=== PATIENT | female | born 1935 | race Caucasian/White ===

== ENCOUNTER → 2018-03-05 11:13 | Outpatient (CLI) | payer MEDICARE, SELFPAY ==
[2018-03-05 13:43] LABS: Alanine Aminotransferase 28 IU/L (9-52); BUN Creatinine Ratio 18.2 (6-22); Blood Urea Nitrogen 20 mg/dL (7-17); Calcium 9.1 mg/dL (8.4-10.2); Carbon Dioxide 30 mmol/L (22-32); Chloride 101 mmol/L (98-107); Cholesterol 251 mg/dL (140-199); Estimated Glomerular Filt Rate 47.4 mL/min (>60); Glucose 92 mg/dL (80-110); HDL Cholesterol 69 mg/dL (40-60); HEMOLYSIS < 15 (0-50); LDL Cholesterol Calculated 167 mg/dL (<100); Potassium 4.6 mmol/L (3.4-5.1); Sodium 140 mmol/L (137-145); Triglycerides 76 mg/dL (35-150)
== END ==
PROVIDERS: PCP Internal Medicine; Visit Provider Internal Medicine
DX: N18.9 Chronic kidney disease, unspecified (principal); E78.00 Pure hypercholesterolemia, unspecified
CPT/HCPCS: 36415; 80048; 80061; 84460

== ENCOUNTER → 2018-08-15 09:46 | Outpatient (CLI) | payer MEDICARE, SELFPAY ==
--- NOTE | 2018-08-15 09:48 | DI.MG.S_ITS ---
BILATERAL DIGITAL SCREENING MAMMOGRAM 3D/2D WITH CAD: 08/15/2018 CLINICAL: Routine screening. Family history of breast cancer. Comparison is made to exams dated: 08/14/2017 mammogram, 08/01/2016 mammogram, and 07/31/2015 mammogram - [facility]. The tissue of both breasts is extremely dense, which lowers the sensitivity of mammography. Current study was also evaluated with a Computer Aided Detection (CAD) system. There are benign vascular calcifications in both breasts. No significant masses, calcifications, or other findings are seen in either breast. There has been no significant interval change. IMPRESSION: There is no mammographic evidence of malignancy. A 1 year screening mammogram is recommended. This exam was interpreted at Station ID: [id number]. NOTE: For mammograms, a report in lay terms will be sent to the patient. Approximately 15% of breast malignancies will not be visualized mammographically. In the management of a palpable breast mass, a negative mammogram must not discourage biopsy of a clinically suspicious lesion. Electronically Signed By: Mayra preciado/keily:08/17/2018 15:46:28 letter sent: Normal Exam ACR BI-RADS Category 2: Benign Finding(s) 3342F
== END ==
PROVIDERS: PCP Internal Medicine; Visit Provider Internal Medicine
DX: Z12.31 Encounter for screening mammogram for malignant neoplasm of breast (principal); Z80.3 Family history of malignant neoplasm of breast
CPT/HCPCS: 77063; 77067

== ENCOUNTER → 2019-07-31 08:22 | Outpatient (CLI) | payer MEDICARE, SELFPAY ==
[2019-07-31 09:15] LABS: Add Manual Diff / Slide Review NO; Basophils Absolute Auto 100 /uL (0-100); Basophils Percent Auto 1.2 % (0-2); Eosinophils Absolute Auto 100 /uL (0-450); Eosinophils Percent Auto 1.8 % (2-4); Hematocrit 38.7 % (36-46); Hemoglobin 12.6 g/dL (12.0-16.0); Lymphocytes Absolute Auto 1300 /uL (1100-4500); Lymphocytes Percent Auto 24.7 % (25-40); Mean Corpuscular HGB Conc 32.7 % (30-36); Mean Corpuscular Hemoglobin 29.2 PG (26-34); Mean Corpuscular Volume 89.4 fL (80-100); Monocytes Absolute Auto 500 /uL (0-900); Monocytes Percent Auto 9.5 % (3-14); Neutrophils Absolute Auto 3400 /uL (1500-7000); Neutrophils Percent Auto 62.8 % (50-75); Platelet Count 220 X10^3/uL (150-400); Red Blood Cell Count 4.33 X10^6/uL (4.0-5.2); Red Cell Distribution Width 14.4 % (11.6-14.8); White Blood Cell Count 5.4 X10^3/uL (4.5-11.0)
[2019-07-31 09:28] LABS: Cholesterol 213 mg/dL (140-199); HDL Cholesterol 60 mg/dL (40-60); LDL Cholesterol Calculated 140 mg/dL (<100); Triglycerides 64 mg/dL (35-150)
[2019-07-31 09:46] LABS: Vitamin D 25 Hydroxy (D3) 28.9 ng/mL (30.0-100.0)
== END ==
PROVIDERS: PCP Internal Medicine; Visit Provider Internal Medicine
DX: N18.9 Chronic kidney disease, unspecified (principal); E78.00 Pure hypercholesterolemia, unspecified
CPT/HCPCS: 36415; 80061; 82306; 85025

== ENCOUNTER → 2019-09-08 14:18 | Outpatient (CLI) | payer MEDICARE, SELFPAY ==
--- NOTE | 2019-09-08 | DI.MG.S_ITS ---
BILATERAL DIGITAL SCREENING MAMMOGRAM 3D/2D WITH CAD: 09/08/2019 CLINICAL: Routine screening. Family history of breast cancer. Comparison is made to exams dated: 08/15/2018 mammogram, 08/14/2017 mammogram, and 08/01/2016 mammogram - [facility]. The tissue of both breasts is heterogeneously dense. This may lower the sensitivity of mammography. Current study was also evaluated with a Computer Aided Detection (CAD) system. There is a focal asymmetry in the left breast at 11 o'clock posterior depth. There is architectural distortion associated with the focal asymmetry. No other significant masses, calcifications, or other findings are seen in either breast. IMPRESSION: INCOMPLETE: NEEDS ADDITIONAL IMAGING EVALUATION The focal asymmetry in the left breast is indeterminate. Additional views with possible ultrasound are recommended. This exam was interpreted at Station ID: [id number]. NOTE: For mammograms, a report in lay terms will be sent to the patient. Approximately 15% of breast malignancies will not be visualized mammographically. In the management of a palpable breast mass, a negative mammogram must not discourage biopsy of a clinically suspicious lesion. Electronically Signed By: Mayra preciado/keily:09/08/2019 15:45:02 letter sent: Additional Imaging Needed ACR BI-RADS Category 0: Incomplete 3340F
== END ==
PROVIDERS: PCP Internal Medicine; Visit Provider Internal Medicine
DX: Z12.31 Encounter for screening mammogram for malignant neoplasm of breast (principal); Z80.3 Family history of malignant neoplasm of breast; M85.851 Other specified disorders of bone density and structure, right thigh; Z78.0 Asymptomatic menopausal state; Z82.62 Family history of osteoporosis
CPT/HCPCS: 77063; 77067; 77080

== ENCOUNTER → 2019-12-08 08:58 | Outpatient (CLI) | payer MEDICARE, SELFPAY ==
[2019-12-08 11:09] LABS: BUN Creatinine Ratio 14.2 (6-22); Blood Urea Nitrogen 18 mg/dL (7-17); Calcium 9.4 mg/dL (8.4-10.2); Carbon Dioxide 32 mmol/L (22-32); Chloride 101 mmol/L (98-107); Cholesterol 200 mg/dL (140-199); Glucose 107 mg/dL (80-110); HDL Cholesterol 54 mg/dL (40-60); HEMOLYSIS < 15 (0-50); LDL Cholesterol Calculated 131 mg/dL (<100); Sodium 139 mmol/L (137-145); Triglycerides 76 mg/dL (35-150)
[2019-12-08 11:26] LABS: Vitamin D 25 Hydroxy (D3) 32.8 ng/mL (30.0-100.0)
== END ==
PROVIDERS: PCP Internal Medicine; Referring Provider Internal Medicine; Visit Provider Internal Medicine
DX: E78.00 Pure hypercholesterolemia, unspecified (principal); N18.9 Chronic kidney disease, unspecified; E55.9 Vitamin D deficiency, unspecified
CPT/HCPCS: 36415; 80048; 80061; 82306

== ENCOUNTER → 2020-02-08 15:47 | Outpatient (CLI) | payer MEDICARE, SELFPAY ==
[2020-02-08 19:23] LABS: Appearance Urine UA CLEAR; Bilirubin Urine UA NEGATIVE (NEGATIVE); Color Urine UA YELLOW; Glucose Urine UA NEGATIVE (Negative); Ketones Urine UA NEGATIVE (NEGATIVE); Leukocyte Esterase Urine UA TRACE (NEGATIVE); Nitrite Urine UA POSITIVE (Negative); Occult Blood Urine UA NEGATIVE (Negative); Protein Urine UA NEGATIVE (Negative); Specific Gravity Urine UA <=1.005 (1.000-1.035); Urobilinogen Urine UA 0.2 E.U./dL (0.2)
[2020-02-08 19:37] LABS: Bacteria Urine Few (2-10); Culture Indicated Urine Specimen Cultured; RBC Urine 0-1/HPF (0-5/HPF); WBC Urine 1-5/HPF (0-5/HPF); pH Urine UA 6.5 (4.5-8.0)
== END ==
PROVIDERS: PCP Internal Medicine; Visit Provider Nurse Practitioner
DX: R10.2 Pelvic and perineal pain (principal)
CPT/HCPCS: 81001; 87086

== ENCOUNTER → 2020-06-27 13:03 | Outpatient (CLI) | payer MEDICARE, SELFPAY ==
--- NOTE | 2020-06-27 | DI.MRI.S_ITS ---
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 After the administration of contrast, axial and sagittal T1 spin echo with fat saturation through the cervical spine. COMPARISON: None. FINDINGS: Image quality: Excellent. Alignment and curvature: Straightening of the usual cervical lordosis. Otherwise normal alignment. There is partial degenerative osseous fusion of the C3 and C4 vertebral bodies across the intervertebral disc space. Marrow: Marrow is normal in overall signal, without suspicious enhancement. Spinal cord: Visualized spinal cord has normal size and signal. No cerebellar tonsillar herniation. No abnormal intramedullary enhancement. Regional soft tissues: No paravertebral masses or suspicious enhancement. C2-3: No spinal canal or neural foraminal stenosis. C3-4: No spinal canal stenosis. Facet and uncovertebral hypertrophy contribute to severe left and mild right neural foraminal narrowing. C4-5: Posterior disc-osteophyte complex and buckling of the ligamentum flavum combine to produce moderate spinal canal stenosis. Facet and uncovertebral hypertrophy combine to produce severe left and mild right neural foraminal narrowing. C5-6: Moderate spinal canal stenosis due to a combination of posterior disc osteophyte complex and buckling of the ligamentum flavum. Facet and uncovertebral hypertrophy contribute to severe left and mild right neural foraminal stenosis. C6-7: Mild spinal canal stenosis due to a combination of posterior disc-osteophyte complex and buckling of the ligamentum flavum. Facet and uncovertebral hypertrophy contribute to mild left greater than right neural foraminal stenosis. C7-T1: No spinal canal or neural foraminal stenosis. IMPRESSION: No evidence of metastatic disease in the cervical spine. Edema and enhancement along the endplates at the C4-C5 level due to degenerative changes, a potential source of nonradicular axial back pain. Moderate spinal canal stenosis at C4-C5 and C5-C6. Severe neural foraminal stenosis on the left from C3-C4 through C5-C6. Dictated by: Otf Gee M.D. on 06/27/2020 at 16:13 Approved by: Otf Gee M.D. on 06/27/2020 at 16:18
--- NOTE | 2020-06-27 | DI.MRI.S_ITS ---
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 After the administration of contrast, axial and sagittal T1 spin echo with fat saturation through the thoracic spine. COMPARISON: [facility], MR, MR LUMBAR SPINE WO/W CON, 06/27/2020, 13:50. FINDINGS: Image quality: Excellent. Alignment and curvature: There is normal bony alignment. Marrow: Nonspecific focus of low T1 marrow signal intensity and edema in the T1 vertebral body anteriorly with associated enhancement. This could represent metastatic disease although edema due to acute degenerative changes of the disc could cause a similar appearance. No other focus of suspicious low T1 marrow signal intensity, marrow edema or abnormal marrow space enhancement. Spinal cord: Normal cord signal intensity and morphology. No syrinx. No abnormal enhancement within the intradural compartment or in the epidural space. Regional soft tissues: No prevertebral or paraspinous soft tissue mass or abnormal soft tissue enhancement Miscellaneous: No spinal canal or neural foraminal stenosis at any level in the thoracic spine. IMPRESSION: 1. Nonspecific focus of low T1 marrow signal intensity with corresponding edema and enhancement in the anterior T1 vertebral body. This could either represent metastatic disease or degenerative change. This does not fill the entire vertebral body nor does it extend into the pedicles, two features which are highly suggestive of neoplasm or metastasis, if present. An additional small focus of enhancement in the left iliac crest raises the overall likelihood that these lesions both represent metastatic disease, although again this is not entirely definitive. Dictated by: Otf Gee M.D. on 06/27/2020 at 16:19 Approved by: Otf Gee M.D. on 06/27/2020 at 16:29
--- NOTE | 2020-06-27 | DI.MRI.S_ITS ---
Caution: Report not yet finalized and possibly incomplete! 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 In cases with scoliosis, additional coronal T2 fast spin echo may be performed. After the administration of contrast, sagittal and axial T1 spin echo with fat saturation through the lumbar spine. COMPARISON: None. FINDINGS: Image quality: Adequate Alignment and curvature: 4 millimeter anterolisthesis of L3 on L4 and of L4 on L5. Otherwise normal alignment. Marrow: Occupying approximately 50 percent of the L1 vertebral body anteriorly, there there is a focus of low T1 signal intensity demonstrating corresponding enhancement and marrow edema (series 3, image 8, series 4 image a, series 7 image 8). Additional focus of enhancement measuring 7 millimeters in the left iliac crest (series 8, image 31). Discogenic marrow edema at the opposing L5-S1 endplates with trace corresponding enhancement. Spinal cord: Normal position and appearance of the conus. No abnormal intradural enhancement. Regional soft tissues: No paravertebral masses or abnormal enhancement. L1-L2: No spinal canal stenosis. Foraminal components of a circumferential disc bulge contribute to mild neural foraminal narrowing bilaterally. L2-L3: No spinal canal stenosis. Foraminal components of a diffuse disc bulge contribute to mild bilateral neural foraminal stenosis in conjunction with facet hypertrophy. L3-L4: Diffuse disc bulge and a superimposed broad-based posterior disc extrusion flatten and indent the ventral thecal sac. Bulky facet hypertrophy and buckling of the ligamentum flavum further contribute to overall severe spinal canal stenosis. There is crowding of the traversing nerve roots with complete effacement of the intervening CSF. Laxity of the nerve roots above this level indicates an element of compression . Foraminal components of the disc bulge contribute to moderate bilateral neural foraminal stenosis, greater on the left where there is abutment and flattening of the exiting L3 nerve root. Mild enhancement surrounding the facets bilaterally. L4-L5: Anterolisthesis combines with diffuse disc bulge, buckling of the ligamentum flavum, and facet hypertrophy to produce moderate-severe spinal canal stenosis. These factors combine to produce severe bilateral neural foraminal narrowing. L5-S1: Diffuse disc bulge and a superimposed broad-based posterior disc protrusion with mass effect upon the traversing S1 nerve roots. Severe right and moderate left neural foraminal stenosis. IMPRESSION: Non-specific foci of enhancement within the anterior L1 vertebral body and left iliac crest. Given history of malignancy these are suspicious for metastatic disease, although this is equivocal strictly on the basis of imaging appearance. Short interval follow-up could be considered. Correlation with any prior outside studies would also be helpful. Advanced lower lumbar spine degenerative changes with areas of probable focal nerve root impingement and significant spinal canal stenosis. Dictated by: Otf Gee M.D. on 06/27/2020 at 16:29 Approved by: Otf Gee M.D. on 06/27/2020 at 16:36
== END ==
PROVIDERS: PCP Nurse Practitioner; Referring Provider Nurse Practitioner; Visit Provider Internal Medicine Medical Oncology
DX: C50.212 Malignant neoplasm of upper-inner quadrant of left female breast (principal); Z17.0 Estrogen receptor positive status [ER+]; M47.812 Spondylosis without myelopathy or radiculopathy, cervical region; M48.02 Spinal stenosis, cervical region; M47.816 Spondylosis without myelopathy or radiculopathy, lumbar region; M48.061 Spinal stenosis, lumbar region without neurogenic claudication
CPT/HCPCS: 72156; 72157; 72158; A9579

== ENCOUNTER → 2020-07-24 10:37 | Outpatient (CLI) | payer MEDICARE, SELFPAY ==
--- NOTE | 2020-07-24 | DI.NM.S_ITS ---
PROCEDURE: NM BONE SCAN WHOLE BODY RADIOPHARMACEUTICAL: 19.6 mCi Tc-99m MDP IV. 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 Anterior and posterior views were acquired from vertex to feet. Additional left and right oblique views of the skull and cervical spine were obtained. COMPARISON: [facility], CR, XR LUMBAR SPINE 2-3V, 05/16/2020, 12:47. [facility], MR, MR LUMBAR SPINE WO/W CON, 06/27/2020, 13:50. [facility], MR, MR THORACIC SPINE WO/W CON, 06/27/2020, 13:34. [facility], MR, MR CERVICAL SPINE WO/W CON, 06/27/2020, 13:16. FINDINGS: There is a focal uptake in the calvarium near midline involving the right parietal bone, suspicious for metastasis. Increased activity in the upper lumbar spine at L1 and L2 could metastasis also degenerative disc and facet disease could give a similar appearance. No lesions are identified in sternum, clavicles, scapulae, ribs, bony pelvis, and visualized shafts of the long bones. There are foci of increased periarticular activity involving shoulders, wrists, hips and SI joints, compatible with degenerative/arthritic changes. IMPRESSION: 1. Foci of increased uptake in calvarium and upper lumbar spine (L1 and L2) are suspicious for osseous metastasis. Dictated by: Isrrael Stern M.D. on 07/24/2020 at 16:48 Approved by: Isrrael Stern M.D. on 07/24/2020 at 18:31
== END ==
PROVIDERS: PCP Nurse Practitioner; Referring Provider Nurse Practitioner; Visit Provider Internal Medicine Medical Oncology
DX: C50.212 Malignant neoplasm of upper-inner quadrant of left female breast (principal); Z17.0 Estrogen receptor positive status [ER+]; R94.8 Abnormal results of function studies of other organs and systems
CPT/HCPCS: 78306; A9503

== ENCOUNTER → 2020-08-08 10:38 | Outpatient (CLI) | payer MEDICARE, SELFPAY ==
[2020-08-08 12:58] LABS: Add Manual Diff / Slide Review NO; Basophils Absolute Auto 100 /uL (0-100); Basophils Percent Auto 0.9 % (0-2); Eosinophils Absolute Auto 100 /uL (0-450); Eosinophils Percent Auto 1.2 % (2-4); Hematocrit 38.6 % (36-46); Hemoglobin 12.7 g/dL (12.0-16.0); Lymphocytes Absolute Auto 1600 /uL (1100-4500); Lymphocytes Percent Auto 27.3 % (25-40); Mean Corpuscular HGB Conc 32.9 % (30-36); Mean Corpuscular Hemoglobin 29.3 PG (26-34); Mean Corpuscular Volume 89.1 fL (80-100); Monocytes Absolute Auto 500 /uL (0-900); Monocytes Percent Auto 8.7 % (3-14); Neutrophils Absolute Auto 3600 /uL (1500-7000); Neutrophils Percent Auto 61.9 % (50-75); Platelet Count 231 X10^3/uL (150-400); Red Blood Cell Count 4.33 X10^6/uL (4.0-5.2); Red Cell Distribution Width 14.3 % (11.6-14.8); White Blood Cell Count 5.8 X10^3/uL (4.5-11.0)
[2020-08-08 13:46] LABS: BUN Creatinine Ratio 17.8 (6-22); Blood Urea Nitrogen 21 mg/dL (7-17); Calcium 9.1 mg/dL (8.4-10.2); Carbon Dioxide 31 mmol/L (22-32); Chloride 99 mmol/L (98-107); Cholesterol 218 mg/dL (140-199); Estimated Glomerular Filt Rate 43.5 mL/min (>60); Glucose 103 mg/dL (80-110); HDL Cholesterol 71 mg/dL (40-60); HEMOLYSIS < 15 (0-50); LDL Cholesterol Calculated 128 mg/dL (<100); Potassium 4.8 mmol/L (3.4-5.1); Sodium 137 mmol/L (137-145); Triglycerides 93 mg/dL (35-150)
== END ==
PROVIDERS: PCP Family Medicine; Referring Provider Family Medicine; Visit Provider Family Medicine
DX: E78.5 Hyperlipidemia, unspecified (principal); N18.32 Chronic kidney disease, stage 3b
CPT/HCPCS: 36415; 80048; 80061; 85025

== ENCOUNTER → 2020-08-15 08:58 | Outpatient (CLI) | payer MEDICARE, SELFPAY ==
--- NOTE | 2020-08-15 10:08 | DI.CT.S_ITS ---
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 5 mm coronal and sagittal reformats were performed, with additional 7 mm coronal MIP reformats through the lungs. For radiation dose reduction, the following was used: automated exposure control, adjustment of mA and/or kV according to patient size. COMPARISON: [facility], CR, XR LUMBAR SPINE 2-3V, 05/16/2020, 12:47. [facility], MR, MR LUMBAR SPINE WO/W CON, 06/27/2020, 13:50. [facility], NM, NM BONE SCAN WHOLE BODY, 07/24/2020, 14:02. FINDINGS: Image quality: Excellent. CHEST: Lungs and pleura: No acute airspace opacities. No pleural effusions or pneumothorax. Central and peripheral airways appear patent and normal in caliber. Mediastinum: Heart size is normal. No pericardial effusion. No mediastinal or hilar adenopathy by size criteria. Thoracic aorta and central pulmonary arteries are normal in size. Esophagus is normal in caliber. No hiatal hernia. Chest wall: No axillary or supraclavicular adenopathy by size criteria. Postsurgical changes of left lumpectomy are noted. No residual mass lesion in the operative bed is seen. Thyroid gland appears normal . ABDOMEN: Solid organs: Liver is normal in size and enhancement. Gallbladder appears normal . Biliary system is non dilated. Pancreas enhances normally. Spleen is normal in size and enhancement. No adrenal nodules. Kidneys demonstrate normal size and enhancement, without hydronephrosis. Peritoneum and bowel: Bowel loops demonstrate normal wall thickness and caliber. No free fluid or air. Nodes and vessels: No retroperitoneal or mesenteric adenopathy by size criteria. Aorta and inferior vena cava are normal in size. Miscellaneous: No ventral hernias. Note is made of an inferior endplate L1 compression fracture, by CT morphology. PELVIS: Genitourinary: Bladder wall thickness is normal. Apparent prior hysterectomy, several cysts at the left ovary are noted. The largest cyst appears to measure approximately 2.2 by 2.6 cm. Miscellaneous: No inguinal hernias or adenopathy. Bones: No suspicious bony lesions are found that would indicate definite osseous metastatic disease.. No vertebral body compression fractures. IMPRESSION: Postsurgical changes left breast. No recurrent mass lesion in the operative bed or regional adenopathy. There is a inferior endplate L1 compression fracture, chronicity uncertain by CT appearance. This area is abnormal on bone scan and MR scanning as is the upper aspect of the L2 vertebral body and posterior elements to a small degree on MR scanning from late June of this year. By CT appearance definite osseous metastatic disease is not suspected. A dominant cyst is noted at the left ovary, measuring up to 2.6 cm. Prior hysterectomy. Dictated by: Juaquin Renee M.D. on 08/15/2020 at 15:34 Approved by: Juaquin Renee M.D. on 08/15/2020 at 15:45
== END ==
PROVIDERS: PCP Family Medicine; Referring Provider Internal Medicine Medical Oncology; Visit Provider Internal Medicine Medical Oncology
DX: C50.212 Malignant neoplasm of upper-inner quadrant of left female breast (principal); Z17.0 Estrogen receptor positive status [ER+]
CPT/HCPCS: 71260; 74177; Q9967

== ENCOUNTER → 2020-10-25 10:49 | Outpatient (CLI) | payer MEDICARE, OTHER, SELFPAY ==
[2020-10-25 11:50] LABS: Cholesterol 199 mg/dL (140-199); HDL Cholesterol 60 mg/dL (40-60); LDL Cholesterol Calculated 124 mg/dL (<100); Triglycerides 76 mg/dL (35-150)
[2020-10-25 19:45] LABS: Vitamin D 25 Hydroxy (D3) 26.6 ng/mL (30.0-100.0)
== END ==
PROVIDERS: PCP Family Medicine; Referring Provider Family Medicine; Visit Provider Family Medicine
DX: E78.9 Disorder of lipoprotein metabolism, unspecified (principal); E55.9 Vitamin D deficiency, unspecified; E78.5 Hyperlipidemia, unspecified
CPT/HCPCS: 36415; 80061; 82306

== ENCOUNTER → 2020-11-09 10:34 | Outpatient (CLI) | payer MEDICARE, OTHER, SELFPAY ==
[2020-11-09] MEDS: COVID-19 VACC, Ad26(JANSSEN)/PF 0.5 ML IM (10:43)
== END ==
PROVIDERS: PCP Family Medicine; Visit Provider Internal Medicine
DX: Z23 Encounter for immunization (principal)
CPT/HCPCS: 0031A; 91303

== ENCOUNTER → 2021-01-11 07:43 | Outpatient (CLI) | payer MEDICARE, OTHER, SELFPAY ==
[2021-01-11 09:48] LABS: Cholesterol 276 mg/dL (140-199); HDL Cholesterol 74 mg/dL (40-60); LDL Cholesterol Calculated 186 mg/dL (<100); Triglycerides 81 mg/dL (35-150)
== END ==
PROVIDERS: PCP Family Medicine; Referring Provider Family Medicine; Visit Provider Family Medicine
DX: N18.32 Chronic kidney disease, stage 3b (principal); E78.5 Hyperlipidemia, unspecified
CPT/HCPCS: 36415; 80061

== ENCOUNTER → 2021-05-21 14:31 | Outpatient (CLI) | payer MEDICARE, OTHER, SELFPAY ==
[2021-05-21 15:38] LABS: Add Manual Diff / Slide Review NO; Basophils Absolute Auto 100 /uL (0-100); Basophils Percent Auto 1.3 % (0-2); Eosinophils Absolute Auto 100 /uL (0-450); Eosinophils Percent Auto 1.1 % (2-4); Hemoglobin 12.1 g/dL (12.0-16.0); Lymphocytes Absolute Auto 2000 /uL (1100-4500); Lymphocytes Percent Auto 32.2 % (25-40); Mean Corpuscular HGB Conc 32.7 % (30-36); Mean Corpuscular Hemoglobin 29.3 PG (26-34); Mean Corpuscular Volume 89.8 fL (80-100); Monocytes Absolute Auto 600 /uL (0-900); Monocytes Percent Auto 10.4 % (3-14); Neutrophils Absolute Auto 3300 /uL (1500-7000); Platelet Count 223 X10^3/uL (150-400); Red Blood Cell Count 4.12 X10^6/uL (4.0-5.2); Red Cell Distribution Width 13.8 % (11.6-14.8); White Blood Cell Count 6.1 X10^3/uL (4.5-11.0)
== END ==
PROVIDERS: PCP Family Medicine; Referring Provider Internal Medicine Medical Oncology; Visit Provider Internal Medicine Medical Oncology
DX: Z17.0 Estrogen receptor positive status [ER+] (principal); C50.212 Malignant neoplasm of upper-inner quadrant of left female breast
CPT/HCPCS: 36415; 85025

== ENCOUNTER → 2021-06-05 09:39 | Outpatient (CLI) | payer MEDICARE, OTHER, SELFPAY ==
--- NOTE | 2021-06-05 | DI.NM.S_ITS ---
PROCEDURE: ME BONE SCAN WHOLE BODY RADIOPHARMACEUTICAL: 19.7 mCi Tc-99m MDP IV. 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 Anterior and posterior views were acquired from vertex to feet. Additional left and right oblique views of the thorax and abdomen were obtained. COMPARISON: [place], [place] BONE SCAN WHOLE BODY, 07/24/2020, 14:02. FINDINGS: Degenerative uptake of radiotracer within the lower cervical spine as well as the acromioclavicular and glenohumeral joints, knee joints, and ankle joints bilaterally. Degenerative uptake of radiotracer in the region of the 1st carpometacarpal joints bilaterally. No evidence of increased radiotracer uptake to indicate malignancy. IMPRESSION: Multiple sites of degenerative uptake of radiotracer. No evidence of metastasis. Dictated by: Hannah Ramsay M.D. on 06/05/2021 at 16:26 Approved by: Hannah Ramsay M.D. on 06/05/2021 at 16:30
== END ==
PROVIDERS: PCP Family Medicine; Referring Provider Internal Medicine Medical Oncology; Visit Provider Internal Medicine Medical Oncology
DX: C50.212 Malignant neoplasm of upper-inner quadrant of left female breast (principal)
CPT/HCPCS: 78306; A9503

== ENCOUNTER → 2021-08-15 10:21 | Outpatient (CLI) | payer MEDICARE, OTHER, SELFPAY ==
[2021-08-15 11:17] LABS: Alanine Aminotransferase 15 IU/L (<35); Albumin 4.4 g/dL (3.5-5.0); Albumin Globulin Ratio 1.2 (1.0-2.8); Alkaline Phosphatase 60 U/L (38-126); Aspartate Aminotransferase 41 IU/L (14-36); Bilirubin Total 0.8 mg/dL (0.2-1.3); Blood Urea Nitrogen 30 mg/dL (7-17); Calcium 9.2 mg/dL (8.4-10.2); Carbon Dioxide 30 mmol/L (22-32); Chloride 102 mmol/L (98-107); Estimated Glomerular Filt Rate 40.6 mL/min (>60); Globulin 3.8 g/dL (1.7-4.1); Glucose 109 mg/dL (80-110); HEMOLYSIS 36 (0-50); Potassium 4.6 mmol/L (3.4-5.1); Sodium 139 mmol/L (137-145); Total Protein 8.2 g/dL (6.3-8.2)
[2021-08-15 11:26] LABS: Vitamin D 25 Hydroxy (D3) 57.8 ng/mL (30.0-100.0)
[2021-08-17 10:44] LABS: Cholesterol 301 mg/dL (140-199); HDL Cholesterol 68 mg/dL (40-60); LDL Cholesterol Calculated 215 mg/dL (<100); Triglycerides 91 mg/dL (35-150)
== END ==
PROVIDERS: PCP Family Medicine; Referring Provider Family Medicine; Visit Provider Family Medicine
DX: E55.9 Vitamin D deficiency, unspecified (principal); E78.5 Hyperlipidemia, unspecified; G25.0 Essential tremor; N18.32 Chronic kidney disease, stage 3b
CPT/HCPCS: 36415; 80053; 80061; 82306

== ENCOUNTER → 2021-08-23 10:11 | Outpatient (CLI) | payer MEDICARE, OTHER, SELFPAY ==
[2021-08-23 12:48] LABS: Cholesterol 254 mg/dL (140-199); HDL Cholesterol 64 mg/dL (40-60); LDL Cholesterol Calculated 177 mg/dL (<100); Triglycerides 67 mg/dL (35-150)
== END ==
PROVIDERS: PCP Family Medicine; Referring Provider Family Medicine; Visit Provider Family Medicine
DX: E78.5 Hyperlipidemia, unspecified (principal)
CPT/HCPCS: 36415; 80061

== ENCOUNTER → 2021-11-17 08:27 | Outpatient (CLI) | payer MEDICARE, OTHER, SELFPAY ==
[2021-11-17 09:34] LABS: Add Manual Diff / Slide Review NO; Basophils Absolute Auto 100 /uL (0-100); Basophils Percent Auto 1.2 % (0-2); Eosinophils Absolute Auto 100 /uL (0-450); Eosinophils Percent Auto 2.1 % (2-4); Hematocrit 37.4 % (36-46); Hemoglobin 12.5 g/dL (12.0-16.0); Lymphocytes Absolute Auto 1300 /uL (1100-4500); Lymphocytes Percent Auto 22.7 % (25-40); Mean Corpuscular HGB Conc 33.4 % (30-36); Mean Corpuscular Hemoglobin 29.6 PG (26-34); Mean Corpuscular Volume 88.5 fL (80-100); Monocytes Absolute Auto 600 /uL (0-900); Monocytes Percent Auto 10.1 % (3-14); Neutrophils Absolute Auto 3800 /uL (1500-7000); Neutrophils Percent Auto 63.9 % (50-75); Platelet Count 233 X10^3/uL (150-400); Red Blood Cell Count 4.22 X10^6/uL (4.0-5.2); Red Cell Distribution Width 14.1 % (11.6-14.8); White Blood Cell Count 5.9 X10^3/uL (4.5-11.0)
[2021-11-17 09:55] LABS: Alanine Aminotransferase 14 IU/L (<35); Alkaline Phosphatase 47 U/L (38-126); Aspartate Aminotransferase 32 IU/L (14-36); Bilirubin Total 0.7 mg/dL (0.2-1.3); Blood Urea Nitrogen 20 mg/dL (7-17); Calcium 8.9 mg/dL (8.4-10.2); Carbon Dioxide 30 mmol/L (22-32); Chloride 102 mmol/L (98-107); Estimated Glomerular Filt Rate 40.5 mL/min (>60); Globulin 4.1 g/dL (1.7-4.1); Glucose 97 mg/dL (80-110); HEMOLYSIS < 15 (0-50); Potassium 4.2 mmol/L (3.4-5.1); Sodium 138 mmol/L (137-145); Total Protein 8.1 g/dL (6.3-8.2)
== END ==
PROVIDERS: Referring Provider Internal Medicine Medical Oncology; Visit Provider Internal Medicine Medical Oncology
DX: Z17.0 Estrogen receptor positive status [ER+] (principal); C50.212 Malignant neoplasm of upper-inner quadrant of left female breast
CPT/HCPCS: 36415; 80053; 85025

== ENCOUNTER → 2022-03-26 08:35 | Outpatient (CLI) | payer MEDICARE, OTHER, SELFPAY ==
[2022-03-26 10:27] LABS: Alanine Aminotransferase 13 IU/L (<35); Albumin Globulin Ratio 1.2 (1.0-2.8); Alkaline Phosphatase 49 U/L (38-126); Aspartate Aminotransferase 34 IU/L (14-36); BUN Creatinine Ratio 17.7 (6-22); Bilirubin Total 0.7 mg/dL (0.2-1.3); Blood Urea Nitrogen 22 mg/dL (7-17); Calcium 8.8 mg/dL (8.4-10.2); Carbon Dioxide 32 mmol/L (22-32); Chloride 100 mmol/L (98-107); Cholesterol 258 mg/dL (140-199); Estimated Glomerular Filt Rate 42 mL/min (>60); Globulin 3.4 g/dL (1.7-4.1); Glucose 97 mg/dL (80-110); HDL Cholesterol 65 mg/dL (40-60); HEMOLYSIS 17 (0-50); LDL Cholesterol Calculated 178 mg/dL (<100); Potassium 4.8 mmol/L (3.4-5.1); Sodium 137 mmol/L (137-145); Total Protein 7.4 g/dL (6.3-8.2); Triglycerides 74 mg/dL (35-150)
[2022-03-26 10:35] LABS: Vitamin D 25 Hydroxy (D3) 49.4 ng/mL (30.0-100.0)
== END ==
PROVIDERS: Referring Provider Family Medicine; Visit Provider Family Medicine
DX: E78.5 Hyperlipidemia, unspecified (principal); E55.9 Vitamin D deficiency, unspecified; G25.0 Essential tremor; N18.32 Chronic kidney disease, stage 3b
CPT/HCPCS: 36415; 80053; 80061; 82306

== ENCOUNTER → 2022-05-18 09:44 | Outpatient (CLI) | payer MEDICARE, OTHER, SELFPAY ==
[2022-05-18 11:39] LABS: Add Manual Diff / Slide Review NO; Basophils Absolute Auto 100 /uL (0-100); Basophils Percent Auto 1.1 % (0-2); Eosinophils Absolute Auto 100 /uL (0-450); Eosinophils Percent Auto 1.5 % (2-4); Hematocrit 37.1 % (36-46); Hemoglobin 12.3 g/dL (12.0-16.0); Lymphocytes Absolute Auto 1600 /uL (1100-4500); Lymphocytes Percent Auto 29.9 % (25-40); Mean Corpuscular Hemoglobin 29.4 PG (26-34); Monocytes Absolute Auto 500 /uL (0-900); Monocytes Percent Auto 9.6 % (3-14); Neutrophils Absolute Auto 3000 /uL (1500-7000); Neutrophils Percent Auto 57.9 % (50-75); Platelet Count 210 X10^3/uL (150-400); Red Blood Cell Count 4.17 X10^6/uL (4.0-5.2); Red Cell Distribution Width 13.9 % (11.6-14.8); White Blood Cell Count 5.2 X10^3/uL (4.5-11.0)
[2022-05-18 11:53] LABS: Alanine Aminotransferase 14 IU/L (<35); Albumin 3.9 g/dL (3.5-5.0); Alkaline Phosphatase 51 U/L (38-126); Aspartate Aminotransferase 34 IU/L (14-36); BUN Creatinine Ratio 20.4 (6-22); Bilirubin Total 0.6 mg/dL (0.2-1.3); Blood Urea Nitrogen 23 mg/dL (7-17); Calcium 8.6 mg/dL (8.4-10.2); Carbon Dioxide 31 mmol/L (22-32); Chloride 101 mmol/L (98-107); Estimated Glomerular Filt Rate 47 mL/min (>60); Glucose 93 mg/dL (80-110); HEMOLYSIS < 15 (0-50); Potassium 4.3 mmol/L (3.4-5.1); Sodium 139 mmol/L (137-145); Total Protein 7.9 g/dL (6.3-8.2)
== END ==
PROVIDERS: PCP Family Medicine; Referring Provider Internal Medicine Medical Oncology; Visit Provider Internal Medicine Medical Oncology
DX: C50.212 Malignant neoplasm of upper-inner quadrant of left female breast (principal); Z17.0 Estrogen receptor positive status [ER+]
CPT/HCPCS: 36415; 80053; 85025

== ENCOUNTER → 2022-11-16 09:43 | Outpatient (CLI) | payer MEDICARE, OTHER, SELFPAY ==
[2022-11-16 10:19] LABS: Add Manual Diff / Slide Review NO; Basophils Absolute Auto 100 /uL (0-100); Basophils Percent Auto 1.2 % (0-2); Eosinophils Absolute Auto 100 /uL (0-450); Eosinophils Percent Auto 1.7 % (2-4); Hematocrit 38.8 % (36-46); Hemoglobin 12.9 g/dL (12.0-16.0); Lymphocytes Absolute Auto 1700 /uL (1100-4500); Lymphocytes Percent Auto 32.4 % (25-40); Mean Corpuscular HGB Conc 33.3 % (30-36); Mean Corpuscular Hemoglobin 29.5 PG (26-34); Mean Corpuscular Volume 88.8 fL (80-100); Monocytes Absolute Auto 600 /uL (0-900); Monocytes Percent Auto 10.6 % (3-14); Neutrophils Absolute Auto 2900 /uL (1500-7000); Neutrophils Percent Auto 54.1 % (50-75); Platelet Count 217 X10^3/uL (150-400); Red Blood Cell Count 4.37 X10^6/uL (4.0-5.2); Red Cell Distribution Width 14.6 % (11.6-14.8); White Blood Cell Count 5.4 X10^3/uL (4.5-11.0)
[2022-11-16 10:32] LABS: Alanine Aminotransferase 18 IU/L (<35); Albumin 4.1 g/dL (3.5-5.0); Albumin Globulin Ratio 1.1 (1.0-2.8); Alkaline Phosphatase 49 U/L (38-126); Aspartate Aminotransferase 30 IU/L (14-36); BUN Creatinine Ratio 19.7 (6-22); Bilirubin Total 0.8 mg/dL (0.2-1.3); Blood Urea Nitrogen 24 mg/dL (7-17); Calcium 8.7 mg/dL (8.4-10.2); Carbon Dioxide 31 mmol/L (22-32); Chloride 100 mmol/L (98-107); Estimated Glomerular Filt Rate 43 mL/min (>60); Globulin 3.9 g/dL (1.7-4.1); Glucose 97 mg/dL (80-110); HEMOLYSIS < 15 (0-50); Potassium 4.8 mmol/L (3.4-5.1); Sodium 136 mmol/L (137-145)
== END ==
PROVIDERS: PCP Family Medicine; Referring Provider Internal Medicine Medical Oncology; Visit Provider Internal Medicine Medical Oncology
DX: C50.212 Malignant neoplasm of upper-inner quadrant of left female breast (principal); Z17.0 Estrogen receptor positive status [ER+]
CPT/HCPCS: 36415; 80053; 85025

== ENCOUNTER → 2023-06-12 07:29 | Outpatient (CLI) | payer MEDICARE, OTHER, SELFPAY ==
[2023-06-12 08:56] LABS: Add Manual Diff / Slide Review NO; Basophils Absolute Auto 100 /uL (0-100); Eosinophils Absolute Auto 100 /uL (0-450); Eosinophils Percent Auto 1.7 % (2-4); Hematocrit 35.8 % (36-46); Hemoglobin 12.1 g/dL (12.0-16.0); Lymphocytes Absolute Auto 1600 /uL (1100-4500); Lymphocytes Percent Auto 29.9 % (25-40); Mean Corpuscular HGB Conc 33.9 % (30-36); Mean Corpuscular Hemoglobin 30.1 PG (26-34); Mean Corpuscular Volume 88.6 fL (80-100); Monocytes Absolute Auto 500 /uL (0-900); Monocytes Percent Auto 8.8 % (3-14); Neutrophils Absolute Auto 3100 /uL (1500-7000); Neutrophils Percent Auto 58.6 % (50-75); Platelet Count 208 X10^3/uL (150-400); Red Blood Cell Count 4.04 X10^6/uL (4.0-5.2); Red Cell Distribution Width 13.9 % (11.6-14.8); White Blood Cell Count 5.3 X10^3/uL (4.5-11.0)
[2023-06-12 09:04] LABS: Alanine Aminotransferase 16 IU/L (<35); Albumin 3.9 g/dL (3.5-5.0); Albumin Globulin Ratio 1.2 (1.0-2.8); Alkaline Phosphatase 43 U/L (38-126); Aspartate Aminotransferase 31 IU/L (14-36); BUN Creatinine Ratio 25.2 (6-22); Bilirubin Total 0.6 mg/dL (0.2-1.3); Blood Urea Nitrogen 33 mg/dL (7-17); Calcium 9.3 mg/dL (8.4-10.2); Carbon Dioxide 30 mmol/L (22-32); Chloride 101 mmol/L (98-107); Estimated Glomerular Filt Rate 39 mL/min (>60); Globulin 3.2 g/dL (1.7-4.1); Glucose 91 mg/dL (80-110); HEMOLYSIS < 15 (0-50); Potassium 4.6 mmol/L (3.4-5.1); Sodium 137 mmol/L (137-145); Total Protein 7.1 g/dL (6.3-8.2)
== END ==
PROVIDERS: PCP Family Medicine; Referring Provider Internal Medicine Medical Oncology; Visit Provider Internal Medicine Medical Oncology
DX: C50.212 Malignant neoplasm of upper-inner quadrant of left female breast (principal); Z17.0 Estrogen receptor positive status [ER+]
CPT/HCPCS: 36415; 80053; 85025

== ENCOUNTER → 2023-10-01 14:55 | Outpatient (CLI) | payer MEDICARE, OTHER, SELFPAY ==
[2023-10-01 16:16] LABS: TSH w/ Reflex to FT4 1.29 uIU/mL (0.47-4.68)
== END ==
PROVIDERS: PCP Family Medicine; Referring Provider Family Medicine; Visit Provider Family Medicine
DX: G25.0 Essential tremor (principal)
CPT/HCPCS: 36415; 84443

== ENCOUNTER → 2023-12-11 10:38 | Outpatient (CLI) | payer MEDICARE, OTHER, SELFPAY ==
[2023-12-11 11:24] LABS: Alanine Aminotransferase 15 IU/L (<35); Albumin 3.9 g/dL (3.5-5.0); Alkaline Phosphatase 52 U/L (38-126); Aspartate Aminotransferase 32 IU/L (14-36); Bilirubin Total 0.7 mg/dL (0.2-1.3); Blood Urea Nitrogen 25 mg/dL (7-17); Calcium 9.1 mg/dL (8.4-10.2); Carbon Dioxide 24 mmol/L (22-32); Chloride 108 mmol/L (98-107); Estimated Glomerular Filt Rate 44 mL/min (>60); Globulin 3.9 g/dL (1.7-4.1); Glucose 93 mg/dL (80-110); HEMOLYSIS 19 (0-50); Potassium 4.3 mmol/L (3.4-5.1); Sodium 136 mmol/L (137-145); Total Protein 7.8 g/dL (6.3-8.2)
[2023-12-11 13:00] LABS: Add Manual Diff / Slide Review NO; Basophils Absolute Auto 100 /uL (0-100); Basophils Percent Auto 1.5 % (0-2); Eosinophils Absolute Auto 100 /uL (0-450); Eosinophils Percent Auto 0.9 % (2-4); Hematocrit 38.2 % (36-46); Hemoglobin 12.7 g/dL (12.0-16.0); Lymphocytes Absolute Auto 2000 /uL (1100-4500); Lymphocytes Percent Auto 25.4 % (25-40); Mean Corpuscular HGB Conc 33.3 % (30-36); Mean Corpuscular Hemoglobin 29.8 PG (26-34); Mean Corpuscular Volume 89.7 fL (80-100); Monocytes Absolute Auto 700 /uL (0-900); Monocytes Percent Auto 9.4 % (3-14); Neutrophils Absolute Auto 5000 /uL (1500-7000); Neutrophils Percent Auto 62.8 % (50-75); Platelet Count 201 X10^3/uL (150-400); Red Blood Cell Count 4.26 X10^6/uL (4.0-5.2); Red Cell Distribution Width 14.1 % (11.6-14.8)
== END ==
LOC: LAB 10:40
PROVIDERS: PCP Family Medicine; Referring Provider Internal Medicine Medical Oncology; Visit Provider Internal Medicine Medical Oncology
DX: C50.212 Malignant neoplasm of upper-inner quadrant of left female breast (principal); Z17.0 Estrogen receptor positive status [ER+]
CPT/HCPCS: 36415; 80053; 85025

== ENCOUNTER → 2024-06-15 07:56 | Outpatient (CLI) | payer MEDICARE, OTHER, SELFPAY ==
[2024-06-15 08:58] LABS: Add Manual Diff / Slide Review NO; Basophils Absolute Auto 0 /uL (0-100); Basophils Percent Auto 0.9 % (0-2); Eosinophils Absolute Auto 100 /uL (0-450); Eosinophils Percent Auto 1.8 % (2-4); Hematocrit 37.1 % (36-46); Hemoglobin 12.3 g/dL (12.0-16.0); Lymphocytes Absolute Auto 1200 /uL (1100-4500); Lymphocytes Percent Auto 23.3 % (25-40); Mean Corpuscular HGB Conc 33.2 % (30-36); Mean Corpuscular Hemoglobin 29.5 PG (26-34); Mean Corpuscular Volume 88.9 fL (80-100); Monocytes Absolute Auto 500 /uL (0-900); Monocytes Percent Auto 8.9 % (3-14); Neutrophils Absolute Auto 3500 /uL (1500-7000); Neutrophils Percent Auto 65.1 % (50-75); Platelet Count 274 X10^3/uL (150-400); Red Blood Cell Count 4.17 X10^6/uL (4.0-5.2); White Blood Cell Count 5.3 X10^3/uL (4.5-11.0)
[2024-06-15 09:15] LABS: Alanine Aminotransferase 14 IU/L (<35); Albumin 3.7 g/dL (3.5-5.0); Albumin Globulin Ratio 1.1 (1.0-2.8); Alkaline Phosphatase 58 U/L (38-126); Aspartate Aminotransferase 29 IU/L (14-36); BUN Creatinine Ratio 17.4 (6-22); Bilirubin Total 0.7 mg/dL (0.2-1.3); Blood Urea Nitrogen 19 mg/dL (7-17); Calcium 9.3 mg/dL (8.4-10.2); Carbon Dioxide 33 mmol/L (22-32); Chloride 99 mmol/L (98-107); Cholesterol 258 mg/dL (140-199); Estimated Glomerular Filt Rate 49 mL/min (>60); Globulin 3.5 g/dL (1.7-4.1); Glucose 109 mg/dL (80-110); HDL Cholesterol 63 mg/dL (40-60); HEMOLYSIS < 15 (0-50); LDL Cholesterol Calculated 179 mg/dL (<100); Potassium 4.7 mmol/L (3.4-5.1); Sodium 135 mmol/L (137-145); Total Protein 7.2 g/dL (6.3-8.2); Triglycerides 80 mg/dL (35-150)
[2024-06-15 09:30] LABS: Vitamin D 25 Hydroxy (D3) 64.6 ng/mL (30.0-100.0)
== END ==
LOC: LAB 08:06
PROVIDERS: Family Provider Family Medicine; PCP Family Medicine; Referring Provider Internal Medicine Medical Oncology; Visit Provider Internal Medicine Medical Oncology
DX: N18.32 Chronic kidney disease, stage 3b (principal); E55.9 Vitamin D deficiency, unspecified; E78.5 Hyperlipidemia, unspecified
CPT/HCPCS: 36415; 80053; 80061; 82306; 85025

== ENCOUNTER → 2024-07-06 09:11 | Outpatient (CLI) | payer MEDICARE, OTHER, SELFPAY ==
--- NOTE | 2024-07-06 09:14 | DI.MRI.S_ITS ---
PROCEDURE: MR LUMBAR SPINE WO CON INDICATIONS: back pain potentially from metastases TECHNIQUE: Noncontrast sagittal T1 spin echo and T2 fast echo, sagittal STIR, and T2 fast spin echo through the lumbar spine. In cases with scoliosis, additional coronal T2 fast spin echo may be performed. COMPARISON: [facility], CR, XR LUMBAR SPINE 2-3V, 07/02/2024, 13:37. [facility], MR, MR LUMBAR SPINE WO/W CON, 06/27/2020, 13:50. FINDINGS: Image quality: Excellent. Alignment and Curvature: There is mild retrolisthesis at L2-L3. Grade 1 anterolisthesis is seen at L3-L4 and at L4-L5. No associated pars defects are seen. Minimal retrolisthesis is seen at L5-S1. Bone Marrow: At the L2 level, there is a fracture seen, with a 35% centrally. There is decreased T1 weighted signal and increased STIR signal. No posterior displacement fracture fragments can be seen. There is a remote, stable L1 fracture, with 30% loss of height centrally. The previously seen abnormal signal within L1 has resolved. Marrow is of normal overall signal. Spinal Cord: Conus medullaris terminates at the L1 level. Visualized cord demonstrates normal signal and size. Paraspinous Soft Tissues: No paravertebral masses. T12-L1: Normal appearance. L1-L2: The disc height is well-preserved. Loss of disc signal is seen at this level. Mild generalized disc bulge is seen. There is mild left-sided and no right-sided neural foraminal narrowing. No significant central canal narrowing is seen. These imaging findings have progressed compared to the prior study. L2-L3: The disc height and disk signal are relatively well-preserved. Moderate generalized disc bulge is seen. Moderate facet joint hypertrophy is seen. Moderate bilateral neural foraminal narrowing is seen. There is at least moderate central canal narrowing seen, as on series 10, image 11. These imaging findings have progressed compared to the prior study. L3-L4: There is at least moderate loss of disc height and disc signal seen. Reactive marrow endplate changes are seen, which demonstrate mixed T1 weighted and T2-weighted signal, and are attributed to a combination of edema and fatty metaplasia (Modic type I and Modic type II changes). Moderate to prominent disc bulge is seen. There is a central disc protrusion. At least moderate facet hypertrophy is seen. Associated hypertrophy of the ligamentum flavum can be seen. There is at least moderate bilateral neural foraminal narrowing, left worse than right. There is a degree of compression seen upon the exiting nerve roots. There is moderate to severe central canal narrowing, as on series 9, image 19. These degenerative changes are worse than in 2020. L4-L5: Moderate loss of disc height is seen. Loss of disc signal is seen. Reactive marrow endplate changes are seen, which demonstrate mixed T1 weighted and T2-weighted signal, and are attributed to a combination of edema and fatty metaplasia (Modic type I and Modic type II changes). At least moderate disc bulge is seen, with a central disc protrusion. Moderate to prominent facet hypertrophy is seen. Associated hypertrophy of the ligamentum flavum can be seen. There is moderate to severe right-sided neural foraminal narrowing, with a degree of compression upon the exiting right L4 nerve root. There is moderate left-sided neural foraminal narrowing. Severe central canal narrowing can be seen at this level. These degenerative changes are more prominent than in 2020. L5-S1: Moderate loss of disc height is seen. Loss of disc signal is seen. Moderate disc bulge is seen, with a mild central disc protrusion. Mild to moderate facet hypertrophy can be seen. There is at least moderate bilateral neural foraminal narrowing, right worse than left. There is a degree of compression upon the exiting right L3 nerve root. Mild central canal narrowing is seen. These imaging findings have progressed compared to the prior study. IMPRESSION: There is a new L2 fracture seen, with 35% loss of height centrally and no posterior displacement of fracture fragments. There is a remote L1 fracture seen. The degree of fracture is similar to 2020. The previously seen abnormal signal within L1 is no longer seen. Multiple levels of significant lumbar spine degenerative change can be seen, which are progressed compared to 2020. Dictated by: Shiv Jacinto M.D. on 07/06/2024 at 9:35 Approved by: Shiv Jacinto M.D. on 07/06/2024 at 9:42
== END ==
LOC: MRI 09:12
PROVIDERS: Family Provider Family Medicine; PCP Family Medicine; Referring Provider Family Medicine; Visit Provider Family Medicine
DX: M54.41 Lumbago with sciatica, right side (principal); M47.816 Spondylosis without myelopathy or radiculopathy, lumbar region; M47.817 Spondylosis without myelopathy or radiculopathy, lumbosacral region; M48.56XA Collapsed vertebra, not elsewhere classified, lumbar region, initial encounter for fracture; Z85.3 Personal history of malignant neoplasm of breast
CPT/HCPCS: 72148